=== PATIENT | female | born 1940 | race Caucasian/White ===

== ENCOUNTER 2022-03-17 10:40 | Inpatient (IN) | payer OTHER ==
[~2022-03-17] VITALS: Ht 162.6 cm; Wt 59.3 kg
[2022-03-17] MEDS ORDERED: SODIUM CHLORIDE 0.9% 1,000 ML IV ONE ×2 (11:45)
[2022-03-17] MEDS ORDERED: KETOROLAC TROMETH 30 MG/ML 1ML VIAL IV ONE (11:45)
[2022-03-17 12:20] LABS: Basophils # (auto) 0 10 ^3/uL (0-0.2); Basophils % (auto) 0.3 % (0.0-2.0); Eosinophils # (auto) 0 10 ^3/uL (0-0.8); Eosinophils % (auto) 0.3 % (0.0-7.0); Hematocrit 42.2 % (36.0-46.0); Hemoglobin 13.9 g/dL (12.2-16.2); Lymphocytes % (auto) 7.8 % (10.0-50.0); Mean Corpuscular Hemoglobin 30.9 pg (28.0-32.0); Mean Corpuscular Volume 93.5 fL (80.0-100.0); Monocytes # (auto) 0.8 10 ^3/uL (0-1.3); Monocytes % (auto) 6.4 % (0.0-12.0); Neutrophils # (auto) 10.7 10 ^3/uL (1.6-8.6); Neutrophils % (auto) 85.2 % (37.0-80.0); Red Blood Cells 4.51 10^6/uL (4.0-5.20); Red Cell Distribution Width 13.6 % (11.8-14.3); White Blood Cell 12.5 10^3/uL (4.4-10.8)
[2022-03-17] MEDS ORDERED: ACETAMINOPHEN 500 MG TAB PO ONE (12:30)
[2022-03-17 12:42] LABS: Albumin 3.4 g/dL (3.4-5.0); BUN/Creatinine Ratio 26.2; Bilirubin, Total 0.4 mg/dL (0.2-1.0); Calcium 9.4 mg/dL (8.5-10.1); Magnesium 2.2 mg/dL (1.6-2.6); Potassium 3.9 mmol/L (3.5-5.1)
[2022-03-17 14:07] LABS: Urine Bacteria NONE SEEN /hpf (None Seen); Urine Blood Negative /uL (Negative); Urine Specific Gravity 1.006 (1.001-1.035); Urine WBC 8 /hpf (0 - 5)
[2022-03-17] MEDS ORDERED: IOHEXOL 350 MG/ML 100ML IJ ONE (17:24)
[2022-03-17] MEDS ORDERED: AZITHROMYCIN 500MG/ 250ML 250 ML IV ONE (19:00)
[2022-03-17] MEDS ORDERED: ALPRAZolam 0.25 MG TAB PO ONE (20:45)
[2022-03-17] MEDS ORDERED: ONDANSETRON HCL 4 MG/2 ML VIAL IV ONE (20:45)
[2022-03-17] MEDS ORDERED: ACETAMINOPHEN 325 MG TAB PO ONE (20:45)
[2022-03-18] MEDS ORDERED: ASPirin 325 MG TAB PO ONE (02:30)
[2022-03-18] MEDS ORDERED: DOCUSATE SOD 100 MG CAP PO PRN (02:45)
[2022-03-18] MEDS ORDERED: ACETAMINOPHEN 325 MG TAB PO PRN (02:45)
[2022-03-18] MEDS ORDERED: ONDANSETRON HCL 4 MG/2 ML VIAL IV PRN (02:45)
[2022-03-18 03:38] LABS: Basophils # (auto) 0 10 ^3/uL (0-0.2); Basophils % (auto) 0.6 % (0.0-2.0); Eosinophils # (auto) 0 10 ^3/uL (0-0.8); Eosinophils % (auto) 0.4 % (0.0-7.0); Hematocrit 41.3 % (36.0-46.0); Hemoglobin 13.5 g/dL (12.2-16.2); Lymphocytes # (auto) 1.4 10 ^3/uL (0.4-5.4); Lymphocytes % (auto) 15.7 % (10.0-50.0); Mean Corpuscular Hemoglobin 31.2 pg (28.0-32.0); Mean Corpuscular Hgb Conc. 32.8 g/dL (32.0-36.0); Mean Corpuscular Volume 95.2 fL (80.0-100.0); Monocytes % (auto) 11.4 % (0.0-12.0); Neutrophils # (auto) 6.3 10 ^3/uL (1.6-8.6); Neutrophils % (auto) 71.9 % (37.0-80.0); Red Blood Cells 4.34 10^6/uL (4.0-5.20); Red Cell Distribution Width 14.3 % (11.8-14.3); White Blood Cell 8.7 10^3/uL (4.4-10.8)
[2022-03-18] MEDS ORDERED: HEPARIN SODIUM (PORCINE) 5000 UNITS/ML 1ML VIAL IV ONE (04:30)
[2022-03-18] MEDS ORDERED: HEPARIN DRIP/D5W 100UNITS/ML 250 ML IV SCH ×2 (04:30→06:45)
[2022-03-18 04:34] LABS: Albumin 2.8 g/dL (3.4-5.0); Calcium 8.8 mg/dL (8.5-10.1); Potassium 4.8 mmol/L (3.5-5.1)
[2022-03-18 04:37] LABS: BUN/Creatinine Ratio 14.1; Bilirubin, Total 0.5 mg/dL (0.2-1.0); Total Protein 6.9 g/dL (6.4-8.2)
[2022-03-18] MEDS ORDERED: dilTIAZem 25 MG/5 ML VIAL IV ONE (05:00)
[2022-03-18 06:51] LABS: Basophils # (auto) 0.1 10 ^3/uL (0-0.2); Basophils % (auto) 0.6 % (0.0-2.0); Eosinophils # (auto) 0 10 ^3/uL (0-0.8); Eosinophils % (auto) 0.3 % (0.0-7.0); Hematocrit 38.8 % (36.0-46.0); Hemoglobin 12.9 g/dL (12.2-16.2); Lymphocytes # (auto) 1.2 10 ^3/uL (0.4-5.4); Lymphocytes % (auto) 14.6 % (10.0-50.0); Mean Corpuscular Hemoglobin 31.3 pg (28.0-32.0); Mean Corpuscular Hgb Conc. 33.4 g/dL (32.0-36.0); Mean Corpuscular Volume 93.8 fL (80.0-100.0); Monocytes # (auto) 0.8 10 ^3/uL (0-1.3); Monocytes % (auto) 9.5 % (0.0-12.0); Neutrophils # (auto) 6.4 10 ^3/uL (1.6-8.6); Red Blood Cells 4.14 10^6/uL (4.0-5.20); Red Cell Distribution Width 13.8 % (11.8-14.3); White Blood Cell 8.6 10^3/uL (4.4-10.8)
[2022-03-18 07:08] LABS: INR 1.1 (0.9-1.15); Partial Thromboplastin Time 61.1 sec (24.6-33.4)
[2022-03-18] MEDS ORDERED: MORPHINE SULFATE INJ 2 MG/ml SYRG IV PRN (07:15)
[2022-03-18] MEDS ORDERED: NITROGLYCERIN 0.4 MG SL TAB SL PRN (07:15)
[2022-03-18] MEDS: SODIUM CHLOR 0.9% PF (SALINE LOCK) 10ML VIAL/SYR IV SCH ×3 (07:25→22:37)
[2022-03-18] MEDS ORDERED: ENOXAPARIN SOD 30 MG/0.3 ML SYRINGE SC SCH (10:00)
[2022-03-18] MEDS ORDERED: ASPirin 81 mg TAB PO SCH (10:00)
[2022-03-18] MEDS: cefTRIAXone 1GM/50ML D5W 50 ML IV SCH (10:03)
[2022-03-18] MEDS: AZITHROMYCIN 500MG/ 250ML 250 ML IV SCH (10:04)
[2022-03-18] MEDS ORDERED: ALPRAZolam 0.25 MG TAB PO ONE (16:15)
[2022-03-18] MEDS: HYDROcodone-ACET 5/325MG TAB PO PRN (19:56)
[2022-03-18 22:07] VITALS: BP 118/52
[2022-03-18 22:20] VITALS: BP 118/52
[2022-03-18] MEDS ORDERED: LORazepam 2MG/ML-1ML VIAL IV ONE (22:30)
[2022-03-18] MEDS ORDERED: ATEN25TA PO (22:37)
[2022-03-18] MEDS ORDERED: ALPR0.255 PO (22:37)
[2022-03-19 04:48] VITALS: BP 132/54
[2022-03-19] MEDS: SODIUM CHLOR 0.9% PF (SALINE LOCK) 10ML VIAL/SYR IV SCH ×3 (06:22→21:00)
[2022-03-19 06:36] LABS: Basophils # (auto) 0.1 10 ^3/uL (0-0.2); Basophils % (auto) 0.8 % (0.0-2.0); Eosinophils # (auto) 0.1 10 ^3/uL (0-0.8); Eosinophils % (auto) 2.1 % (0.0-7.0); Hematocrit 36.3 % (36.0-46.0); Hemoglobin 12.4 g/dL (12.2-16.2); Lymphocytes # (auto) 1.8 10 ^3/uL (0.4-5.4); Lymphocytes % (auto) 26.2 % (10.0-50.0); Mean Corpuscular Hemoglobin 32.1 pg (28.0-32.0); Mean Corpuscular Hgb Conc. 34.3 g/dL (32.0-36.0); Mean Corpuscular Volume 93.5 fL (80.0-100.0); Monocytes # (auto) 0.7 10 ^3/uL (0-1.3); Monocytes % (auto) 10.4 % (0.0-12.0); Neutrophils # (auto) 4.1 10 ^3/uL (1.6-8.6); Neutrophils % (auto) 60.5 % (37.0-80.0); Nucleated Red Blood Cells % 0.1 %; Red Blood Cells 3.88 10^6/uL (4.0-5.20); Red Cell Distribution Width 13.9 % (11.8-14.3); White Blood Cell 6.7 10^3/uL (4.4-10.8)
[2022-03-19 07:00] LABS: Potassium 3.7 mmol/L (3.5-5.1)
[2022-03-19 07:09] LABS: Albumin 2.9 g/dL (3.4-5.0); BUN/Creatinine Ratio 18.6; Bilirubin, Total 0.4 mg/dL (0.2-1.0); Calcium 8.8 mg/dL (8.5-10.1); Total Protein 6.1 g/dL (6.4-8.2)
[2022-03-19] MEDS: ALPRAZolam 0.5 MG TAB PO PRN ×2 (07:14→21:00)
[2022-03-19 08:00] VITALS: BP 131/60
[2022-03-19] MEDS: cefTRIAXone 1GM/50ML D5W 50 ML IV SCH (08:58)
[2022-03-19] MEDS: AZITHROMYCIN 500MG/ 250ML 250 ML IV SCH (09:53)
[2022-03-19] MEDS ORDERED: ENOXAPARIN SOD 30 MG/0.3 ML SYRINGE SC SCH (10:00)
[2022-03-19] MEDS ORDERED: MECLIZINE HCL 25 MG TAB PO PRN (10:00)
[2022-03-19] MEDS: APIXABAN 5 MG TAB PO SCH ×2 (10:29→21:00)
[2022-03-19] MEDS: HCTZ 25 MG TAB PO SCH (10:30)
[2022-03-19] MEDS: predniSONE 20 MG TAB PO SCH (10:31)
[2022-03-19 11:21] LABS: Free T4 (Free Thyroxine) 1.15 ng/dL (0.89-1.76)
[2022-03-19 11:22] LABS: Folate (Folic Acid) 17.78 ng/mL (5.38-24)
[2022-03-19 12:00] VITALS: BP 124/69
[2022-03-19 16:00] VITALS: BP 129/69
[2022-03-19 22:00] VITALS: BP 123/55
[2022-03-20] MEDS: SODIUM CHLOR 0.9% PF (SALINE LOCK) 10ML VIAL/SYR IV SCH ×3 (05:29→20:42)
[2022-03-20 05:44] LABS: Calcium 9.4 mg/dL (8.5-10.1); Magnesium 1.8 mg/dL (1.6-2.6); Potassium 3.6 mmol/L (3.5-5.1)
[2022-03-20 05:47] VITALS: BP 131/64
[2022-03-20] MEDS: HYDROcodone-ACET 5/325MG TAB PO PRN (08:27)
[2022-03-20 09:00] VITALS: BP 129/66
[2022-03-20] MEDS: APIXABAN 5 MG TAB PO SCH ×2 (09:38→20:44)
[2022-03-20] MEDS: predniSONE 20 MG TAB PO SCH (09:38)
[2022-03-20] MEDS: cefTRIAXone 1GM/50ML D5W 50 ML IV SCH (09:38)
[2022-03-20] MEDS: HCTZ 25 MG TAB PO SCH (09:40)
[2022-03-20 13:00] VITALS: BP 125/66
[2022-03-20 16:34] VITALS: BP 135/58
[2022-03-20] MEDS: ALPRAZolam 0.5 MG TAB PO PRN (16:52)
[2022-03-20] MEDS ORDERED: DOXYCYCLINE 100 MG TAB/CAP PO SCH (22:00)
[2022-03-20 22:51] VITALS: BP 118/54
[2022-03-20 23:04] VITALS: BP 118/54
== END 2022-03-21 01:00 | disposition short-term general hospital (02) | DRG 152 ==
LOC: ER 10:40 → EDBD 10:40 → TELE 03-18 07:02 → UNDOADMIN 03-18 07:02 → TELE 03-18 08:02 → TELE-CENTR 03-18 21:48
PROVIDERS: ADMIT Nurse Practitioner Family; ATTEND Internal Medicine
DX: J01.90 Acute sinusitis, unspecified (principal); I21.A1 Myocardial infarction type 2; B37.0 Candidal stomatitis; N39.0 Urinary tract infection, site not specified; E44.0 Moderate protein-calorie malnutrition; G91.9 Hydrocephalus, unspecified; I48.91 Unspecified atrial fibrillation; H81.09 Meniere's disease, unspecified ear; I10 Essential (primary) hypertension; M19.90 Unspecified osteoarthritis, unspecified site; I95.9 Hypotension, unspecified; R55 Syncope and collapse; Z86.73 Personal history of transient ischemic attack (TIA), and cerebral infarction without residual deficits; Z86.61 Personal history of infections of the central nervous system; Z68.22 Body mass index [BMI] 22.0-22.9, adult
CPT/HCPCS: 36415; 70450; 70551; 71045; 71275; 80048; 80053; 81001; 82607; 82746; 83735; 83880; 84439; 84443; 84484; 85025; 85379; 85610; 85652; 85730; 87086; 87426; 93005; 93306; 93886; 93970; 96361; 96374; 97116; 97163; 97530; G0378; J0696; J1885; J2405

== ENCOUNTER 2024-03-07 18:42 | Emergency (ER) | payer OTHER ==
[~2024-03-07] VITALS: Ht 160 cm; Wt 54.5 kg
[~2024-03-07 18:42] MED LIST: ALPR0.255 PO; ATEN25TA PO
[2024-03-07] MEDS: TETANUS-DIPTH-ACEL PERTUSSIS 0.5ML SYR Tdap IM ONE (19:09)
[2024-03-07 20:18] VITALS: TEMP 97.5
[2024-03-07 21:24] VITALS: BP 112/67; PULSE 76; RESP 19; O2SAT 94
== END 2024-03-07 21:25 | disposition home or self-care (01) ==
LOC: EDBD 18:42 → ER 18:42
DX: S00.81XA Abrasion of other part of head, initial encounter (principal); I10 Essential (primary) hypertension; I48.91 Unspecified atrial fibrillation; Z79.899 Other long term (current) drug therapy; Z86.73 Personal history of transient ischemic attack (TIA), and cerebral infarction without residual deficits; Z88.5 Allergy status to narcotic agent; W10.8XXA Fall (on) (from) other stairs and steps, initial encounter; Y93.89 Activity, other specified; Y92.89 Other specified places as the place of occurrence of the external cause; Y99.8 Other external cause status
CPT/HCPCS: 70450; 90471; 90715

== ENCOUNTER 2024-03-14 09:17 | Emergency (ER) | payer OTHER ==
[~2024-03-14] VITALS: Ht 160 cm; Wt 57.7 kg
[2024-03-14 10:10] LABS: Basophils # (auto) 0.1 10 ^3/uL (0-0.2); Basophils % (auto) 0.8 % (0.0-2.0); Eosinophils # (auto) 0.1 10 ^3/uL (0-0.8); Eosinophils % (auto) 1.6 % (0.0-7.0); Hematocrit 42.5 % (36.0-46.0); Hemoglobin 14.4 g/dL (12.2-16.2); Lymphocytes # (auto) 1.5 10 ^3/uL (0.4-5.4); Lymphocytes % (auto) 24.1 % (10.0-50.0); Mean Corpuscular Hemoglobin 32.4 pg (28.0-32.0); Mean Corpuscular Hgb Conc. 33.8 g/dL (32.0-36.0); Mean Corpuscular Volume 95.8 fL (80.0-100.0); Monocytes # (auto) 0.6 10 ^3/uL (0-1.3); Monocytes % (auto) 10.3 % (0.0-12.0); Neutrophils # (auto) 3.9 10 ^3/uL (1.6-8.6); Neutrophils % (auto) 63.2 % (37.0-80.0); Nucleated Red Blood Cells % 0.1 %; Platelet Count (auto) 249 10^3/uL (140-450); Red Blood Cells 4.44 10^6/uL (4.0-5.20); Red Cell Distribution Width 13.5 % (11.8-14.3); White Blood Cell 6.2 10^3/uL (4.4-10.8)
--- NOTE | 2024-03-14 10:12 | ED.PDOC ---
History of Present Illness HPI Comments 83Y F with PMHx Afib, HTN, chronic lt knee pain, and Menieres disease presents to ED for chief complaint anxiety with dizziness and nausea. Pt denies v/d, cough, chest pain, SOB, and dysuria. Pt says her Xanax rx has run out and she is unable to get a refill until tomorrow. Pt's usual rx reads as Xanax 0.25mg two tablets at night (last filled on 02/14/2024 #60tablets). Pt states she ran out because she took an extra one (unknown when). Pt was seen at [facility] yesterday and was given Xanax there. Pt states she did not take Xanax on . Pt also says BP has been elevated at home. Allergies include Codeine, Digoxin, Lidocaine, and Simvastatin. Chief Complaint: Anxiety Time Seen by MD: 09:37 Reviewed Notes: Medications, Allergies Allergies: Coded Allergies: Codeine (Verified Allergy, Unknown, 03/07/24) Digoxin (Verified Allergy, Unknown, 03/07/24) Lidocaine (Verified Allergy, Unknown, 03/07/24) Simvastatin (Verified Allergy, Unknown, 03/07/24) Home Meds Reported Medications Atenolol (Atenolol) 25 Mg Tab, 1 TAB PO TID 03/18/22 Alprazolam (Alprazolam) 0.25 Mg Tab, 1 TAB PO TIDPRN 03/18/22 Information Source: Patient Mode of Arrival: Ambulatory Severity: Mild Timing: Days Duration: Since onset Medication Refill: Ran out of Medication, For: Psychiatric Past Medical History PAST MEDICAL HISTORY: AFIB, CVA, HTN Surgical History: Denies all surgeries PRESCHOOL ASSISTANT TEACHER History: Denies all PRESCHOOL ASSISTANT TEACHER Hx Family History Family History: Reviewed,noncontributory to illness Social History Smoker: Non-Smoker Alcohol: Denies ETOH Use Drugs: Denies Drug Use Lives In: Home Constitutional: denies: chills, diaphoresis, fatigue, fever, malaise, sweats, weakness, others EENTM: denies: blurred vision, double vision, ear bleeding, ear discharge, ear drainage, ear pain, ear ringing, eye pain, eye redness, hearing loss, mouth pain, mouth swelling, nasal discharge, nose bleeding, nose congestion, nose pain, photophobia, tearing, throat pain, throat swelling, voice changes, others Respiratory: denies: cough, hemoptysis, orthopnea, SOB at rest, shortness of b reath, SOB with excertion, stridor, wheezing, others Cardiovascular: denies: chest pain, dizzy spells, diaphoresis, Dyspnea on exertion, edema, irregular heart beat, left arm pain, lightheadedness, palpitations, PND, syncope, others Gastrointestinal: reports: nausea; denies: abdomen distended, abdominal pain, blood streaked bowels, constipated, diarrhea, dysphagia, difficulty swallowing, hematemesis, melena, poor appetite, poor fluid intake, rectal bleeding, rectal pain, vomiting, others Genitourinary: denies: abnormal vagina bleeding, burning, dyspareunia, dysuria, flank pain, frequency, hematuria, incontinence, pain, , vagina discharge, urgency, others Neurological: reports: dizziness; denies: fainting, headache, left sided numbness, left sided weakness, numbness, paresthesia, pre-existing deficit, right sided numbness, right sided weakness, seizure, speech problems, tingling, tremors, weakness, others Musculoskeletal: denies: back pain, gout, joint pain, joint swelling, muscle pain, muscle stiffness, neck pain, others Integumetry: denies: bruises, change in color, change in hair/nails, dryness, laceration, lesions, lumps, rash, wounds, others Allergic/Immunocompromised: denies: Difficulty Healing, Frequent Infections, Hives, Itching, others Hematologic/Lymphatic: denies: anemia, blood clots, easy bleeding, easy bruising, swollen glands, others Endocrine: denies: excessive hunger, excessive sweating, excessive thirst, excessive urination, flushing, intolerance to cold, intolerance to heat, unexplained weight gain, unexplained weight loss, others Psychiatric: denies: anxiety, bipolar disorder, depression, hopeless, panic disorder, schizophrenia, sleepless, suicidal, others All Other Systems: Reviewed and Negative Physical Exam General Appearance: No Apparent Distress, Normal HEENT: Normal ENT Inspection, Pharynx Normal, TMs Normal Neck: Full Range of Motion, Non-Tender, Normal, Normal Inspection Respiratory: Chest Non-Tender, Lungs Clear, No Accessory Muscle Use, No Respiratory Distress, Normal Breath Sounds Cardiovascular: No Edema, No JVD, No Murmur, No Gallop, Normal Peripheral Pulses, Regular Rate/Rhythm Breast Exam: Deferred Gastrointestinal: No Organomegaly, Non Tender, No Pulsatile Mass, Normal Bowel Sounds, Soft Genitalia: Deferred Pelvic: Deferred Rectal: Deferred Extremities: No calf tenderness, Normal capillary refill, Normal inspection, Normal range of motion, Non-tender, No pedal edema Musculoskeletal : Apperance: Normal Neurologic: Alert, right of way maintenance supervisor II-XII nml as Tested, No Motor Deficits, Normal Affect, Normal Mood, No Sensory Deficits Cerebellar Function: Normal Reflexes: Normal Skin: Dry, Normal Color, Warm Lymphatic: No Adenopathy Was a procedure done? Was a procedure done?: No EKG EKG : Pulse Rate (adult): 73 [place]: Normal Cardiac Rhythm: NSR Block: None Hypertrophy: None ST: Normal Comments no significant ST changes Differential Dx Considerations may include: Anxiety, acute coronary syndrome, dizziness, vertigo, UTI X-Ray, Labs, Meds, VS Vital Signs Date Time Temp Pulse Resp B/P (MAP) Pulse Ox O2 Delivery O2 Flow Rate FiO2 03/14/24 10:40 97.8 68 17 126/50 (75) 95 97.8 03/14/24 10:40 68 16 95 Room Air 03/14/24 10:26 73 03/14/24 09:54 73 03/14/24 09:47 98.1 77 16 137/59 (85) 97 Lab Test 03/14/24 10:44 03/14/24 09:50 Range/Units Urine Color Yellow Yellow Urine Clarity Clear Clear Urine pH 6.5 5.0-9.0 Urine Specific Elizabeth 1.021 1.001-1.035 Urine Protein Trace H Negative Urine Ketones Negative Negative Urine Blood Negative Negative /uL Urine Nitrite Negative Negative Urine Bilirubin Negative Negative Urine Urobilinogen Normal Negative mg/dL Urine Leukocyte Esterase Negative Negative /uL Urine RBC 1 0 - 4 /hpf Urine WBC 1 0 - 5 /hpf Urine Squamous Epithelial Cells Few <5 /hpf Urine Bacteria None seen None Seen /hpf Urine Mucus Few None Seen Urine Glucose Normal Normal mg/dL White Blood Count 6.2 4.4-10.8 10^3/uL Red Blood Count 4.44 4.0-5.20 10^6/uL Hemoglobin 14.4 12.2-16.2 g/dL Hematocrit 42.5 36.0-46.0 % Mean Corpuscular Volume 95.8 80.0-100.0 fL Mean Corpuscular Hemoglobin 32.4 H 28.0-32.0 pg Mean Corpuscular Hemoglobin Concent 33.8 32.0-36.0 g/dL Red Cell Distribution Width 13.5 11.8-14.3 % Platelet Count 249 140-450 10^3/uL Mean Platelet Volume 9.0 6.9-10.8 fL Neutrophils (%) (Auto) 63.2 37.0-80.0 % Lymphocytes (%) (Auto) 24.1 10.0-50.0 % Monocytes (%) (Auto) 10.3 0.0-12.0 % Eosinophils (%) (Auto) 1.6 0.0-7.0 % Basophils (%) (Auto) 0.8 0.0-2.0 % Neutrophils # (Auto) 3.9 1.6-8.6 10 ^3/uL Lymphocytes # (Auto) 1.5 0.4-5.4 10 ^3/uL Monocytes # (Auto) 0.6 0-1.3 10 ^3/uL Eosinophils # (Auto) 0.1 0-0.8 10 ^3/uL Basophils # (Auto) 0.1 0-0.2 10 ^3/uL Nucleated Red Blood Cells 0.1 % Sodium Level 141 136-145 mmol/L Potassium Level 4.0 3.5-5.1 mmol/L Chloride Level 106 98-107 mmol/L Carbon Dioxide Level 28 20-31 mmol/L Anion Gap 7 5-15 Blood Urea Nitrogen 13 9-23 mg/dL Creatinine 0.72 0.550-1.02 mg/dL Glomerular Filtration Rate Calc 83 >90 mL/min BUN/Creatinine Ratio 18.1 10.0-20.0 Serum Glucose 113 H 74-106 mg/dL Calcium Level 10.4 8.7-10.4 mg/dL Total Bilirubin 0.4 0.2-1.0 mg/dL Aspartate Amino Transferase (AST) 14 13-40 U/L Alanine Aminotransferase (ALT) 13 7-40 U/L Alkaline Phosphatase 71 46-116 U/L Total Protein 7.7 5.7-8.2 g/dL Albumin 4.4 3.2-4.8 g/dL Current Medications Medications (Trade) Dose Ordered Sig/Cheryl Route Start Time Stop Time Status Last Admin Alprazolam (Xanax Tablet) 0.25 mg ONCE ONCE PO 03/14/24 10:15 03/14/24 10:16 DC 03/14/24 10:40 83-year-old female presents here with withdrawal of benzodiazepine. She states that she takes benzodiazepine alprazolam 2 a day but has been short on her medications. She tried to refill yesterday but was unable to do so. She went to [facility] where they gave her 2 pills yesterday. She states however she was unable to get a refill until tomorrow. She states she is feeling dizziness nausea, overall not feeling well. She was requesting alprazolam right now. I have given her 1 dose in the ER. Blood work has been done which is unremarkable. CBC CMP no evidence of acute pathology. EKG with no significant ST changes. At this time low suspicion for acute coronary syndrome. Patient has been given Xanax and on re-evaluation she is feeling much better. I will be discharging her home. Advised to return if her symptoms worsen or persist. 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 Discharged With: Self, Spouse Critical Care Note Critical Care Time?: No Stability Stability form required: No Heart Score Heart Score: Heart Score Response (Comments) Value History Slightly Suspicious 0 EKG Normal 0 Age >65 2 Risk Factors 1 or 2 risk factors 1 Troponin Normal limit 0 Total 3 I personally scribed for HANY ESQUIVEL MD ([email or web address]) on 03/14/24 at 10:12. Electronically submitted by Karen Ogden ([email or web address]). I personally scribed for HANY ESQUIVEL MD ([email or web address]) on 03/14/24 at 10:26. Electronically submitted by Karen Ogden ([facility]). I personally scribed for HANY ESQUIVEL MD ([email or web address]) on 03/14/24 at 11:54. Electronically submitted by Karen Ogden ([facility]). HANY ESQUIVEL MD Mar 14, 2024 10:12
[2024-03-14 10:40] VITALS: BP 126/50; PULSE 68; RESP 16; TEMP 97.8; O2SAT 95
[2024-03-14] MEDS: ALPRAZolam 0.25 MG TAB PO ONE (10:40)
[2024-03-14 10:50] LABS: Alanine Aminotransferase 13 U/L (7-40); Albumin 4.4 g/dL (3.2-4.8); Alkaline Phosphatase 71 U/L (46-116); Anion Gap 7 (5-15); Aspartate Aminotransferase 14 U/L (13-40); BUN/Creatinine Ratio 18.1 (10.0-20.0); Blood Urea Nitrogen 13 mg/dL (9-23); Calcium 10.4 mg/dL (8.7-10.4); Carbon Dioxide 28 mmol/L (20-31); Chloride 106 mmol/L (98-107); Glucose 113 mg/dL (74-106); Sodium 141 mmol/L (136-145)
[2024-03-14 10:51] LABS: Bilirubin, Total 0.4 mg/dL (0.2-1.0); Total Protein 7.7 g/dL (5.7-8.2)
[2024-03-14 10:55] LABS: Urine Bacteria None Seen /hpf (None Seen)
[2024-03-14 11:03] LABS: Urine Blood Negative /uL (Negative); Urine Clarity Clear (Clear); Urine Color Yellow (Yellow); Urine Mucus FEW (None Seen); Urine Protein, UAD TRACE (Negative); Urine Specific Gravity 1.021 (1.001-1.035); Urine Urobilinogen Normal (Negative); Urine WBC 1 /hpf (0 - 5); Urine pH 6.5 (5.0-9.0)
--- NOTE | 2024-03-16 08:19 | ECG ---
[facility] Test Date: 2024-03-14 Test Time: 09:54:45 Pat Name: NIRAV BENNETT Department: ER Room: Gender: F Claim Representative: RICHARD : 1940 Requested By: HANY ESQUIVEL Order Number: [id number] Reading MD: Measurements Intervals [place] Rate: 73 P: 65 [place]: 156 QRS: 43 QRSD: 72 T: 45 QT: 363 QTc: 400 Interpretive Statements Sinus rhythm Low voltage, precordial leads Abnormal R-wave progression, early transition Please click the below link to view image of tracing.
== END 2024-03-14 12:08 | disposition home or self-care (01) ==
LOC: ER 09:17
DX: F13.939 Sedative, hypnotic or anxiolytic use, unspecified with withdrawal, unspecified (principal); I10 Essential (primary) hypertension; I48.91 Unspecified atrial fibrillation; Z86.73 Personal history of transient ischemic attack (TIA), and cerebral infarction without residual deficits; Z88.5 Allergy status to narcotic agent; Z88.8 Allergy status to other drugs, medicaments and biological substances; Z79.899 Other long term (current) drug therapy
CPT/HCPCS: 36415; 80053; 81001; 85025; 93005

== ENCOUNTER 2024-04-07 07:10 | Emergency (ER) | payer OTHER ==
[~2024-04-07] VITALS: Ht 167.6 cm; Wt 54.5 kg
--- NOTE | 2024-04-07 07:23 | ED.PDOC ---
History of Present Illness HPI Comments This is an 83-year-old female who comes in with chief complaint of palpitations and possible anxiety. The patient has a history of anxiety as well as atrial fibrillation and she states that at approximately 8:00 p.m. she started with some palpitations that lasted throughout the night. She woke up this morning and she was somewhat anxious. The patient states that she has been on Xanax by her doctor at [place] stopped her medications for approximately one week. She denies any fever, cough, chest pain, nausea or vomiting. EN route, the patient was feeling somewhat anxious. The patient had an Accu-Chek of 132 EN route. Time Seen by MD: 07:16 Reviewed Notes: Nurses Notes, Surface To Air Weapons Officer Notes, Medications, Allergies (Allergies listed above) Allergies: Coded Allergies: Codeine (Verified Allergy, Unknown, 03/07/24) Digoxin (Verified Allergy, Unknown, 03/07/24) Lidocaine (Verified Allergy, Unknown, 03/07/24) Simvastatin (Verified Allergy, Unknown, 03/07/24) Home Meds Reported Medications Atenolol (Atenolol) 25 Mg Tab, 1 TAB PO TID 03/18/22 Alprazolam (Alprazolam) 0.25 Mg Tab, 1 TAB PO TIDPRN 03/18/22 Information Source: Patient, Emergency Med Personnel Mode of Arrival: EMS Severity: Mild Timing: Hours Duration: Since onset Prehospital treatment: Accucheck (132), Junior Mechanical Engineer Associated signs and symptoms No chest pain or shortness for breath Past Medical History PAST MEDICAL HISTORY: AFIB, Anxiety, CVA, HTN Past Medical History (Other): Low blood pressure, Meniere's disease Surgical History: Tonsillectomy Surgical History (Other): Right ear surgery INTERNET SITE DESIGNER History: 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 SITE DESIGNER Hx Family History Family History: Unknown Social History Smoker: Non-Smoker Alcohol: Denies ETOH Use Drugs: Denies Drug Use Lives In: Home Constitutional: denies: chills, diaphoresis, fatigue, fever, malaise, sweats, weakness, others EENTM: denies: blurred vision, double vision, ear bleeding, ear discharge, ear drainage, ear pain, ear ringing, eye pain, eye redness, hearing loss, mouth pain, mouth swelling, nasal discharge, nose bleeding, nose congestion, nose pain, photophobia, tearing, throat pain, throat swelling, voice changes, others Respiratory: denies: cough, hemoptysis, orthopnea, SOB at rest, shortness of breath, SOB with excertion, stridor, wheezing, others Cardiovascular: reports: palpitations; denies: chest pain, dizzy spells, diaphoresis, Dyspnea on exertion, edema, irregular heart beat, left arm pain, lightheadedness, PND, syncope, others Gastrointestinal: denies: abdomen distended, abdominal pain, blood streaked bowels, constipated, diarrhea, dysphagia, difficulty swallowing, hematemesis, melena, nausea, poor appetite, poor fluid intake, rectal bleeding, rectal pain, vomiting, others Genitourinary: denies: abnormal vagina bleeding, burning, dyspareunia, dysuria, flank pain, frequency, hematuria, incontinence, pain, , vagina discharge, urgency, others Neurological: denies: dizziness, fainting, headache, left sided numbness, left sided weakness, numbness, paresthesia, pre-existing deficit, right sided num bness, right sided weakness, seizure, speech problems, tingling, tremors, weakness, others Musculoskeletal: denies: back pain, gout, joint pain, joint swelling, muscle pain, muscle stiffness, neck pain, others Integumetry: denies: bruises, change in color, change in hair/nails, dryness, laceration, lesions, lumps, rash, wounds, others Allergic/Immunocompromised: denies: Difficulty Healing, Frequent Infections, Hives, Itching, others Hematologic/Lymphatic: denies: anemia, blood clots, easy bleeding, easy bruising, swollen glands, others Endocrine: denies: excessive hunger, excessive sweating, excessive thirst, excessive urination, flushing, intolerance to cold, intolerance to heat, unexplained weight gain, unexplained weight loss, others Psychiatric: reports: anxiety; denies: bipolar disorder, depression, hopeless, panic disorder, schizophrenia, sleepless, suicidal, others Physical Exam General Appearance: No Apparent Distress HEENT: Normal ENT Inspection, Pharynx Normal, TMs Normal Neck: Full Range of Motion, Non-Tender, Normal, Normal Inspection Respiratory: Chest Non-Tender, Lungs Clear, No Accessory Muscle Use, No Respiratory Distress, Normal Breath Sounds Cardiovascular: Irregular, No Edema, No JVD, No Murmur, No Gallop Breast Exam: Deferred Gastrointestinal: No Organomegaly, Non Tender, No Pulsatile Mass, Normal Bowel Sounds, Soft Genitalia: Deferred Pelvic: Deferred Rectal: Deferred Extremities: No calf tenderness, Normal capillary refill, Normal inspection, Normal range of motion, Non-tender, No pedal edema Musculoskeletal : Apperance: Normal Neurologic: Alert, fundraising manager II-XII nml as Tested, No Motor Deficits, Normal Affect, No Sensory Deficits, Other (Mild anxiety) Cerebellar Function: Normal Reflexes: Normal Skin: Dry, Normal Color, Warm Lymphatic: No Adenopathy Was a procedure done? Was a procedure done?: No EKG EKG : Pulse Rate (adult): 84 [place]: Normal Cardiac Rhythm: Afib Block: None ST: Nonsp Differential Dx Considerations may include: ACS, [place], anxiety, generalized weakness, atrial fibrillation X-Ray, Labs, Meds, VS Vital Signs Date Time Temp Pulse Resp B/P (MAP) Pulse Ox O2 Delivery O2 Flow Rate FiO2 04/07/24 07:40 70 12 102/55 (71) 95 04/07/24 07:40 70 12 95 Room Air* 0 21 04/07/24 07:23 84 04/07/24 07:18 97.2 82 16 124/66 (85) 98 04/07/24 07:14 84 Lab Test 04/07/24 07:27 Range/Units White Blood Count 6.2 4.4-10.8 10^3/uL Red Blood Count 4.39 4.0-5.20 10^6/uL Hemoglobin 14.2 12.2-16.2 g/dL Hematocrit 41.9 36.0-46.0 % Mean Corpuscular Volume 95.4 80.0-100.0 fL Mean Corpuscular Hemoglobin 32.4 H 28.0-32.0 pg Mean Corpuscular Hemoglobin Concent 33.9 32.0-36.0 g/dL Red Cell Distribution Width 13.0 11.8-14.3 % Platelet Count 260 140-450 10^3/uL Mean Platelet Volume 8.9 6.9-10.8 fL Neutrophils (%) (Auto) 57.2 37.0-80.0 % Lymphocytes (%) (Auto) 28.2 10.0-50.0 % Monocytes (%) (Auto) 11.0 0.0-12.0 % Eosinophils (%) (Auto) 2.6 0.0-7.0 % Basophils (%) (Auto) 1.0 0.0-2.0 % Neutrophils # (Auto) 3.5 1.6-8.6 10 ^3/uL Lymphocytes # (Auto) 1.7 0.4-5.4 10 ^3/uL Monocytes # (Auto) 0.7 0-1.3 10 ^3/uL Eosinophils # (Auto) 0.2 0-0.8 10 ^3/uL Basophils # (Auto) 0.1 0-0.2 10 ^3/uL Nucleated Red Blood Cells 0.1 % Sodium Level 141 136-145 mmol/L Potassium Level 3.8 3.5-5.1 mmol/L Chloride Level 104 98-107 mmol/L Carbon Dioxide Level 28 20-31 mmol/L Anion Gap 9 5-15 Blood Urea Nitrogen 14 9-23 mg/dL Creatinine 0.75 0.550-1.02 mg/dL Glomerular Filtration Rate Calc 79 >90 mL/min BUN/Creatinine Ratio 18.7 10.0-20.0 Serum Glucose 113 H 74-106 mg/dL Calcium Level 10.9 H 8.7-10.4 mg/dL Troponin I High Sensitivity < 3 L </=34 ng/L Current Medications Medications (Trade) Dose Ordered Sig/Cheryl Route Start Time Stop Time Status Last Admin Alprazolam (Xanax Tablet) 0.25 mg ONCE ONCE PO 04/07/24 07:30 04/07/24 07:31 DC 04/07/24 07:51 The patient was given Xanax here in the emergency department's states that she is feeling better The CBC and chemistry panel are within normal limits The troponin level is negative The patient is followed up at [facility]. We did contact [facility] and they are going to schedule the patient for an appoin tment We did explain to them that the patient was no longer on the Xanax The authorization #[id number] We have discussed the findings with the patient and she is in agreement with the management. Time of 1ST Reevaluation: 07:22 Reevaluation 1ST: Improved Patient Education/Counseling: Diagnosis, Treatment, Prognosis, Need For Follow Up Family Education/Counseling: No Family Present Departure 1 Departure Time of Disposition: 08:51 Impression: Primary Impression: Atrial fibrillation Qualified Codes: I48.91 - Unspecified atrial fibrillation Disposition: HOME / SELF CARE / HOMELESS Condition: Fair Discharged With: Self Critical Care Note Critical Care Time?: No Stability Stability form required: No Heart Score Heart Score: Heart Score Response (Comments) Value History N/A 0 EKG N/A 0 Age N/A 0 Risk Factors N/A 0 Troponin N/A 0 Total 0 GRACIELA LEONG MD Apr 07, 2024 07:23
[2024-04-07 07:40] VITALS: PULSE 70; RESP 12; O2SAT 95
[2024-04-07 07:48] LABS: Basophils # (auto) 0.1 10 ^3/uL (0-0.2); Eosinophils # (auto) 0.2 10 ^3/uL (0-0.8); Eosinophils % (auto) 2.6 % (0.0-7.0); Hematocrit 41.9 % (36.0-46.0); Hemoglobin 14.2 g/dL (12.2-16.2); Lymphocytes # (auto) 1.7 10 ^3/uL (0.4-5.4); Lymphocytes % (auto) 28.2 % (10.0-50.0); Mean Corpuscular Hemoglobin 32.4 pg (28.0-32.0); Mean Corpuscular Hgb Conc. 33.9 g/dL (32.0-36.0); Mean Corpuscular Volume 95.4 fL (80.0-100.0); Monocytes # (auto) 0.7 10 ^3/uL (0-1.3); Neutrophils # (auto) 3.5 10 ^3/uL (1.6-8.6); Neutrophils % (auto) 57.2 % (37.0-80.0); Nucleated Red Blood Cells % 0.1 %; Platelet Count (auto) 260 10^3/uL (140-450); Red Blood Cells 4.39 10^6/uL (4.0-5.20); White Blood Cell 6.2 10^3/uL (4.4-10.8)
[2024-04-07] MEDS: ALPRAZolam 0.25 MG TAB PO ONE (07:51)
[2024-04-07 07:57] LABS: Chloride 104 mmol/L (98-107); Potassium 3.8 mmol/L (3.5-5.1); Sodium 141 mmol/L (136-145)
[2024-04-07 07:58] LABS: Anion Gap 9 (5-15); Calcium 10.9 mg/dL (8.7-10.4); Carbon Dioxide 28 mmol/L (20-31)
[2024-04-07 08:03] LABS: BUN/Creatinine Ratio 18.7 (10.0-20.0); Blood Urea Nitrogen 14 mg/dL (9-23); Glucose 113 mg/dL (74-106)
[2024-04-07 08:56] VITALS: BP 127/73; PULSE 70; RESP 20; TEMP 97.3; O2SAT 95
--- NOTE | 2024-04-07 11:07 | ECG ---
[facility] Test Date: 2024-04-07 Test Time: 07:14:03 Pat Name: NIRAV BENNETT Department: ED Room: Gender: F Lien Searcher: IAN : 1940 Requested By: GRACIELA LEONG Order Number: [id number] Reading MD: Bruce Em Measurements Intervals [place] Rate: 84 P: 0 AR: 0 QRS: -7 QRSD: 83 T: 39 QT: 363 QTc: 430 Interpretive Statements Atrial fibrillation Paired ventricular premature complexes Aberrant conduction of SV complex(es) Low voltage, precordial leads Electronically Signed On 04-08-2024 16:23:35 PST by Bruce Em Please click the below link to view image of tracing.
== END 2024-04-07 09:11 | disposition home or self-care (01) ==
LOC: EDBD 07:10 → ER 07:10
DX: I48.91 Unspecified atrial fibrillation (principal); I10 Essential (primary) hypertension; F41.9 Anxiety disorder, unspecified; Z86.73 Personal history of transient ischemic attack (TIA), and cerebral infarction without residual deficits; Z90.89 Acquired absence of other organs; Z98.890 Other specified postprocedural states; Z88.5 Allergy status to narcotic agent; Z88.8 Allergy status to other drugs, medicaments and biological substances; Z79.899 Other long term (current) drug therapy
CPT/HCPCS: 36415; 80048; 84484; 85025; 93005

== ENCOUNTER 2024-05-04 06:59 | Emergency (ER) | payer OTHER ==
[~2024-05-04] VITALS: Ht 160 cm; Wt 55.0 kg
--- NOTE | 2024-05-04 07:20 | ED.PDOC ---
History of Present Illness HPI Comments 83 y/o F is a BIBA for c/o flu-like symptoms for 1x week, today. Per EMS report, patient endorses on having dysuria and nausea for 1x week, with additional onset of weakness and lightheadedness sensation, this morning. Patient comments on having near-syncope sensations with additional symptoms, earlier, and reports no recent known sick contact or travel. She denies having any chest pain, shortness of breath, cough, fever, chills, or other associated symptoms or modifiers at this time. Time Seen by MD: 07:00 Reviewed Notes: Nurses Notes, Car Checker Notes, Medications, Allergies Allergies: Coded Allergies: Codeine (Verified Allergy, Unknown, 03/07/24) Digoxin (Verified Allergy, Unknown, 03/07/24) Lidocaine (Verified Allergy, Unknown, 03/07/24) Simvastatin (Verified Allergy, Unknown, 03/07/24) Home Meds Reported Medications Atenolol (Atenolol) 25 Mg Tab, 1 TAB PO TID 03/18/22 Alprazolam (Alprazolam) 0.25 Mg Tab, 1 TAB PO TIDPRN 03/18/22 Information Source: Patient, Emergency Med Personnel Mode of Arrival: EMS Severity: Moderate Timing: Weeks Duration: Since onset Prehospital treatment: 12 Lead EKG, Accucheck, Melter Helper Past Medical History PAST MEDICAL HISTORY: AFIB, Anxiety, CVA, HTN, Hypotension Past Medical History (Other): Meniere's disease Surgical History: Tonsillectomy Surgical History (Other): right-ear surgery, brain shunt PUBLIC SERVICES LIBRARIAN History: Denies all PUBLIC SERVICES LIBRARIAN Hx Family History Family History: Unknown Social History Smoker: Non-Smoker Alcohol: Denies ETOH Use Drugs: Denies Drug Use Lives In: Home Cardiovascular: reports: lightheadedness Gastrointestinal: reports: nausea Genitourinary: reports: dysuria Neurological: reports: weakness All Other Systems: Reviewed and Negative (negative unless otherwise stated above or in HPI) Physical Exam General Appearance: Moderate Distress, Normal HEENT: Normal ENT Inspection, Pharynx Normal, TMs Normal Neck: Full Range of Motion, Non-Tender, Normal, Normal Inspection Respiratory: Chest Non-Tender, Lungs Clear, No Accessory Muscle Use, No Respiratory Distress, Normal Breath Sounds Cardiovascular: No Edema, No JVD, No Murmur, No Gallop, Normal Peripheral Pulses, Regular Rate/Rhythm Breast Exam: Deferred Gastrointestinal: No Organomegaly, Non Tender, No Pulsatile Mass, Normal Bowel Sounds, Soft Genitalia: Deferred Pelvic: Deferred Rectal: Deferred Extremities: No calf tenderness, Normal capillary refill, Normal inspection, Normal range of motion, Non-tender, No pedal edema Musculoskeletal : Apperance: Normal Neurologic: Alert, skin fitter II-XII nml as Tested, No Motor Deficits, Normal Affect, Normal Mood, No Sensory Deficits Cerebellar Function: NOT DONE Reflexes: NOT DONE Skin: Dry, Normal Color, Warm Peripheral Pulses: 3+ Radial (R), 3+ Radial (L) Lymphatic: No Adenopathy Was a procedure done? Was a procedure done?: No Differential Dx Considerations may include: UTI, URI, bronchitis, PNA, pleural effusions, viral syndrome X-Ray, Labs, Meds, VS Vital Signs Date Time Temp Pulse Resp B/P (MAP) Pulse Ox O2 Delivery O2 Flow Rate FiO2 05/04/24 07:24 97.7 77 16 133/60 (84) 96 Patient alert. No sign of any distress. Vitals stable. Answering all questions. Moving all extremities. Lungs clear. Abdomen is soft nontender. Chronic condition. Reviewed her history. Explained to the patient. Was told to follow up with her primary care physician. Was told to come back if there is any problem. Time of 1ST Reevaluation: 07:30 Reevaluation 1ST: Improved Patient Education/Counseling: Diagnosis, Treatment Family Education/Counseling: No Family Present Additional Information I reviewed the following notes from patient's past medical encounters: ED physician documentation on 04/07/24 The following tests were ordered, and results were reviewed by me: UA, CBC, RAPID INFLUENZA A&B, COVID19 ANTIGEN GUS, CT HEAD W/O CONTRAST Additional Information was gathered from interviewing the following independent historians: EMT I reviewed and agreed with the following test results read by other providers: CT HEAD W/O CONTRAST I discussed treatment and results with medical personnel Departure 1 Departure Time of Disposition: 07:44 Impression: Primary Impression: Vasovagal syncope Disposition: 01 HOME / SELF CARE / HOMELESS Condition: Good Discharged With: Self Critical Care Note Critical Care Time?: No Stability Stability form required: No Heart Score Heart Score: Heart Score Response (Comments) Value History N/A 0 EKG N/A 0 Age N/A 0 Risk Factors N/A 0 Troponin N/A 0 Total 0 I personally scribed for YANG BENNETT MD ([email or web address]) on 05/04/24 at 07:20. Electronically submitted by León Pacheco ([email or web address]). I personally scribed for YANG BENNETT MD ([email or web address]) on 05/04/24 at 07:22. Electronically submitted by León Pacheco ([email or web address]). I personally scribed for YANG BENNETT MD ([email or web address]) on 05/04/24 at 07:23. Electronically submitted by León Pacheco ([email or web address]). YANG BENNETT MD May 04, 2024 07:20
[2024-05-04 07:24] VITALS: BP 133/60; PULSE 77; RESP 16; O2SAT 96
== END 2024-05-04 07:45 | disposition home or self-care (01) ==
LOC: EDBD 06:59 → ER 06:59
DX: R55 Syncope and collapse (principal); R53.1 Weakness; R30.0 Dysuria; R11.0 Nausea; I48.91 Unspecified atrial fibrillation; F41.9 Anxiety disorder, unspecified; I10 Essential (primary) hypertension; I95.9 Hypotension, unspecified; Z90.89 Acquired absence of other organs; Z86.73 Personal history of transient ischemic attack (TIA), and cerebral infarction without residual deficits; Z79.899 Other long term (current) drug therapy; Z88.5 Allergy status to narcotic agent; Z88.8 Allergy status to other drugs, medicaments and biological substances